=== PATIENT | male | born 1945 | race Caucasian/White ===

== ENCOUNTER 2017-06-24 08:29 | Inpatient (IN) | payer OTHER ==
[2017-06-24] MEDS ORDERED: LR 1,000 ML IV ONE (08:46)
[2017-06-24] MEDS ORDERED: LIDOCAINE 1% 2 ML INJ ID PRN (08:46)
[2017-06-24] MEDS ORDERED: THROMBIN (BOVINE) 5,000 UNIT VIAL TP ONE (08:57)
[2017-06-24] MEDS ORDERED: CALCIUM CHLORIDE 1 GM/10 ML INJ ONE (08:58)
[2017-06-24] MEDS ORDERED: ceFAZolin 1 GM/5 ML SYR ONE (08:58)
--- NOTE | 2017-06-24 09:13 | PDHPUP ---
History & Physical Update H&P update statement: This history and physical update is based on an assessment of the patient which was completed after admission or registration (within 24 hours), but prior to the surgery/procedure. H&P update: H&P reviewed & patient examined, no change in patient's condition since H&P completed
[2017-06-24] MEDS: FAMOTIDINE 20 MG TAB PO ONE ×2 (09:22→09:27)
[2017-06-24] MEDS ORDERED: MIDAZOLAM 2 MG/2 ML VIAL IVP ONE (09:57)
--- NOTE | 2017-06-24 09:57 | PDANEPAE ---
ANE History of Present Illness L TKA ANE Past Medical History - Cardiovascular History Hx Hypertension: No Hx Arrhythmias: No Hx Chest Pain: No Hx Coronary Artery / Peripheral Vascular Disease: No Hx CHF / Valvular Disease: No Hx Palpitations: No - Pulmonary History Hx COPD: No Hx Asthma/Reactive Airway Disease: No Hx Recent Upper Respiratory Infection: No Hx Oxygen in Use at Home: No Hx Sleep Apnea: No Sleep Apnea Screening Result - Last Documented: Negative - Neurologic History Hx Cerebrovascular Accident: No Hx Seizures: No Hx Dementia: No - Endocrine History Hx Diabetes: No Obesity: no - Renal History Hx Renal Disorders: Yes Renal History Comment: hx of kidney stones. hx of turp - Liver History Hx Hepatic Disorders: No - Neurological & Psychiatric Hx Hx Neurological and Psychiatric Disorders: No - Cancer History Hx Cancer: No - Congenital Disorder History Hx Congenital Disorders: No - GI History Hx Gastrointestinal Disorders: Yes Gastrointestinal History Comment: reflux - Other Health History Other Health History: none - Chronic Pain History Chronic Pain: Yes (left knee and right foot) - Surgical History Prior Surgeries: right foot/ toe joint surgery 2016. Right TKA with Sarah 20 yrs ago. hernia repair. kidney stone removal. TURP. appy. tonsillectomy ANE Review of Systems Review of Systems: - Exercise capacity METS (RN): 4 METS ANE Patient History - Allergies Allergies/Adverse Reactions: No Known Allergies Allergy (Verified 06/10/17 10:56) - Home Medications Home Medications: Ibuprofen [Motrin (*)] 200 mg PO DAILY PRN 06/03/17 [Last Taken 1 Week Ago ~10/29] Naproxen Sodium [Aleve 220 MG (*)] 220 mg PO BID PRN 06/03/17 [Last Taken 1 Week Ago ~06/17/17] Omeprazole [Prilosec 20 mg] 20 mg PO DAILY 06/03/17 [Last Taken 06/24/17 07:00] Tadalafil [Cialis] 5 mg PO Q2D 06/03/17 [Last Taken Unknown] - NPO status NPO Since - Liquids (Date): 06/23/17 NPO Since - Liquids (Time): 23:00 NPO Since - Solids (Date): 06/23/17 NPO Since - Solids (Time): 20:00 - Smoking Hx Smoking Status: Never smoked - Family Anes Hx Family Hx Anesthesia Complications: none ANE Labs/Vital Signs - Vital Signs Blood Pressure: 141/78 Heart Rate: 57 Respiratory Rate: 18 O2 Sat (%): 96 Height: 177.8 cm Weight: 81.647 kg ANE Physical Exam - Airway Neck exam: FROM Mallampati Score: Class 1 Mouth exam: normal dental/mouth exam - Pulmonary Pulmonary: clear to auscultation - Cardiovascular Cardiovascular: regular rate and rhythym - ASA Status ASA Status: II ANE Anesthesia Plan Anesthesia Plan: general endotracheal anesthesia, spinal Regional Anesthesia: adductor canal FNB
[2017-06-24] MEDS ORDERED: MIDAZOLAM 2 MG/2 ML VIAL ONE (09:58)
[2017-06-24] MEDS ORDERED: ROPIVACAINE 0.2% 80 MG, EPINEPHrine 0.2 MG, KETOROLAC TROMETHAMINE 30 MG in SYRINGE 0 ML IU ONE (10:00)
[2017-06-24] MEDS ORDERED: ceFAZolin 2 GM/SWFI 2 GM/20 ML SYR IVP ONE (10:00)
[2017-06-24] MEDS ORDERED: DEXAMETHASONE 4 MG/ML VIAL IVP ONE (10:00)
[2017-06-24] MEDS ORDERED: ACETAMINOPHEN 325 MG TAB PO ONE (10:00)
[2017-06-24] MEDS ORDERED: fentaNYL 100 MCG/2 ML INJ ONE ×3 (10:09→12:46)
[2017-06-24] MEDS ORDERED: PROPOFOL 200 MG/20 ML VIAL ONE (10:09)
[2017-06-24] MEDS ORDERED: ROCURONIUM 50 MG/5 ML VIAL ONE (10:10)
[2017-06-24] MEDS ORDERED: DEXAMETHASONE 4 MG/ML VIAL ONE (10:10)
[2017-06-24] MEDS ORDERED: PHENYLEPHRINE 10 MG/ML SDV ONE (10:30)
[2017-06-24] MEDS ORDERED: ONDANSETRON DISINTEGRATING 4 MG TAB PO PRN (11:06)
[2017-06-24] MEDS ORDERED: diphenhydrAMINE 25 MG CAP PO PRN (11:06)
[2017-06-24] MEDS ORDERED: BISACODYL 10 MG SUPP PR PRN (11:06)
[2017-06-24] MEDS ORDERED: MAGNESIUM HYDROXIDE 30 ML UDCUP PO PRN (11:06)
[2017-06-24] MEDS ORDERED: POLYETHYLENE GLYCOL 3350 17 GM PKT PO PRN (11:06)
[2017-06-24] MEDS ORDERED: PROMETHAZINE HCL 25 MG SUPPR PR PRN (11:06)
[2017-06-24] MEDS ORDERED: DIPHENOXYLATE/ATROPINE LOMOTIL 1 TAB PO PRN (11:06)
[2017-06-24] MEDS ORDERED: FAMOTIDINE 20 MG TAB PO PRN (11:06)
[2017-06-24] MEDS ORDERED: CYCLOBENZAPRINE 10 MG TAB PO PRN (11:06)
[2017-06-24] MEDS ORDERED: METOCLOPRAMIDE 10 MG/2 ML VIAL IVP PRN (11:06)
[2017-06-24] MEDS ORDERED: LACTULOSE 20 GM/30 ML UDCUP PO PRN (11:06)
[2017-06-24] MEDS ORDERED: PROMETHAZINE HCL 25 MG/ML INJ IVP PRN (11:06)
[2017-06-24] MEDS ORDERED: ONDANSETRON 4 MG/2 ML VIAL IVP PRN (11:06)
[2017-06-24] MEDS ORDERED: LR 1,000 ML IV SCH (11:30)
[2017-06-24] MEDS ORDERED: clonIDINE 1 MG/10 ML VIAL EP ONE (11:50)
[2017-06-24] MEDS ORDERED: ROPIVACAINE HCL 150 MG/30 ML INJ ONE (11:50)
[2017-06-24] MEDS ORDERED: ONDANSETRON 4 MG/2 ML VIAL ONE (11:54)
[2017-06-24] MEDS ORDERED: NEOSTIGMINE METHYLSULFATE 3 MG/3 ML SYR ONE (12:12)
[2017-06-24] MEDS ORDERED: GLYCOPYRROLATE 0.2 MG/1 ML VIAL ONE (12:12)
[2017-06-24] MEDS ORDERED: NALOXONE HCL 0.4 MG/ML INJ IVP PRN (12:21)
[2017-06-24] MEDS ORDERED: HYDROmorphONE/DILAUDID 1 MG/ML INJ ONE (12:46)
[2017-06-24] MEDS: fentaNYL 100 MCG/2 ML INJ IVP PRN ×2 (12:50→13:25)
[2017-06-24] MEDS: HYDROmorphONE/DILAUDID 1 MG/ML INJ IVP PRN ×2 (12:50→13:25)
--- NOTE | 2017-06-24 14:27 | CPEKG ---
Heart Rate: 50 RR Interval: 1200 P-R Interval: 204 QRSD Interval: 128 QT Interval: 488 QTC Interval: 445 P Refugio: 46 QRS Refugio: -47 T Wave Refugio: -8 EKG Severity - ABNORMAL ECG - EKG Impression: SINUS RHYTHM EKG Impression: RBBB AND LAFB EKG Impression: LEFT VENTRICULAR HYPERTROPHY Electronically Signed By: Alireza Villegas 26-Jun-2017 11:14:54
--- NOTE | 2017-06-24 16:00 | POSTANESTH ---
Post Anesthetic Evaluation Cardiovascular Status: Similar to Pre-Op Cond Respiratory Status: Similar to Pre-op Cond. Level of Consciousness/Mental Status: Can Participate in Eval Pain Control: Inadeq, Add Tx Required Nausea/Vomiting Control: Adequate, Prn Tx Ordered Complications Possibly Related to Anesthesia: None Noted
[2017-06-24] MEDS: ACETAMINOPHEN 325 MG TAB PO SCH ×2 (16:13→18:47)
[2017-06-24] MEDS: ceFAZolin 2 GM/DEXTROSE 100 ML IV SCH (18:03)
--- NOTE | 2017-06-24 18:27 | GOP ---
[f rep st] OPERATIVE REPORT DATE OF OPERATION: 06/24/2017 SURGEON: Alessandra Smith MD CHEST PAINTING LEADER: Omar Tom CFA ANESTHESIA: Spinal with general and adductor canal block. PREOPERATIVE DIAGNOSIS: Severe osteoarthritis, left knee. POSTOPERATIVE DIAGNOSIS: Severe osteoarthritis, left knee. PROCEDURE PERFORMED: Left total knee arthroplasty. FINDINGS: Preoperative x-rays of the patient's left knee demonstrated severe medial compartment arth rosis. The patient also had moderate patellofemoral arthrosis. At the time of surgery, these findin gs were confirmed. The patient had complete loss of the articular cartilage in the medial compartmen t and moderate loss in the patellofemoral joint. At the time of surgery, a cemented Bond [employer] Nephew Journey II total knee arthroplasty was performed. A size 6 left Oxinium-coated femoral component wa s implanted and a size 5 tibial base plate was utilized. An 11 mm thick cross-linked polyethylene in sert was used in the metal backing of the tibia. A 35 mm round patellar component was also cemented into place. Following implantation of the components, the knee was taken through range of motion and achieved full extension and 135 degrees of flexion on the table. The knee was stable to varus and v algus stressing both in extension and flexion. The flexion, extension gaps were symmetrical. ESTIMATED BLOOD LOSS: Less than 100 cc. DESCRIPTION OF PROCEDURE: The patient was taken to the operating room, placed in supine position on the operating table. Following placement of a spinal block and general inhalation anesthesia, the kn ee and leg were prepped and draped in the usual sterile manner. The patient received 2 g of IV Ancef . The leg was elevated and exsanguinated and the tourniquet inflated to 275 mmHg. The DeMayo leg ho lder was used throughout the procedure for positioning. A midline incision was made extending from j ust superior to the patella distally to the tibial tubercle. Incision was carried down through the s ubcutaneous tissue to the retinaculum of the knee. A medial parapatellar arthrotomy was then perform ed and the patella was everted laterally. The thickness of the patella was measured and then a 9 mm bone cut was taken from the posterior patella. A metal plate was placed on the cut surface to protec t the patella which was placed in the lateral gutter. Our attention was then turned to the distal femur. A distal femoral drill hole was made and then int ramedullary referencing was utilized for the distal femoral cut. The distal femoral cutting block wa s positioned and a +2 cut was taken from the distal femur due to a small preoperative flexion contrac ture. Next, the femur was sized and the patient was a size 6 in the anterior-posterior plane and a s ize 7 in the medial-lateral plane, so the size 6 component was chosen. The cutting block was placed on the distal femur and then pinned. The anterior, posterior, and chamfer cuts were made. The size 6 component was placed on the femur and then the notch was cleared with a reamer followed by the box osteotome. The femoral component was then removed and our attention was turned to the tibia. The me dial and lateral meniscus were excised. The tibia was retracted anteriorly and again intramedullary referencing was utilized for the tibial cut. A drill hole was placed in the proximal tibia and then the intramedullary guide was inserted. The tibial cutting block was positioned appropriately and pin shane. The tibial cut was made. The bone was then removed and the soft tissues were released around t he edges of the bone cut. The posterior cruciate ligament was released posteriorly taking care to pr otect all the structures in the back of the knee. The tibia was then sized. A size 5 tibial compone nt was chosen. The tibial component was then pinned into place and a trial reduction was performed w ith a 10 and 11 mm thick polyethylene. The best fit was noted with the 11 mm polyethylene. The flex ion and extension gaps were checked and were symmetrical. The keel punch was then used on the tibia. The patella was prepared for cementing with the drill. All the trial components were removed and t he bony surfaces were thoroughly irrigated and dried. The cement was mixed. The tibial component wa s cemented first, followed by the femoral component and the patellar component. The 11 mm thick poly ethylene was inserted and the knee was brought into extension. Pressure was held on the components w hile the cement hardened. Excess cement was removed from around the edges of the components. The wo und was thoroughly irrigated out. Prior to implantation of the components, the posterior capsule was injected with joint cocktail. The tourniquet was then deflated and hemostasis was obtained. The re tinaculum of the knee was closed using #2 FiberWire in a [id number] fashion. Subcutaneous tissu es were closed using 2-0 Vicryl. The skin was closed using ana. Sterile dressings were applied. The patient tolerated the procedure well. There were no complications. Estimated blood loss minim al. Final sponge and needle counts were correct. The patient was transported to the recovery room i n good condition. /[id number]/MODL
[2017-06-24] MEDS ORDERED: KETOROLAC 15 MG/1 ML SDV IVP PRN (21:06)
[2017-06-24] MEDS: SENNOSIDES/DOCUSATE SODIUM TAB PO SCH (21:18)
[2017-06-24 23:24] VITALS: TEMP 98.1
[2017-06-25] MEDS: ACETAMINOPHEN 325 MG TAB PO SCH ×3 (00:33→12:27)
[2017-06-25] MEDS: ceFAZolin 2 GM/DEXTROSE 100 ML IV SCH (00:33)
[2017-06-25 06:17] LABS: HEMATOCRIT 34.9 % (40.0-51.0); HEMOGLOBIN 12.3 g/dL (13.7-17.5)
[2017-06-25] MEDS ORDERED: KETOROLAC 30 MG/1 ML SDV IVP PRN (07:58)
[2017-06-25] MEDS: SENNOSIDES/DOCUSATE SODIUM TAB PO SCH (08:11)
[2017-06-25] MEDS ORDERED: ASPIRIN 325 MG TAB PO SCH (09:00)
[2017-06-25] MEDS ORDERED: ASPIRIN 81 MG CHEWABLE TAB PO SCH (09:00)
[2017-06-25] MEDS ORDERED: NON-FORMULARY NEW DRUG (Omeprazole [Prilosec 20 Mg] 20 MG) PO SCH (09:00)
[2017-06-25] MEDS ORDERED: PANTOPRAZOLE SODIUM 40 MG TAB PO SCH (09:00)
--- NOTE | 2017-06-25 09:50 | ASMTCMCOM ---
CM Note CM Note Notes: Patient is POD #1 L TKA and doing well. Anticipates discharge today. Spoke with patient and about discharge plans. They are staying with friends in [place] until 07/03 when he has a follow up appointment. He has outpatient PT scheduled in [place] for later in the month, but would like home care until he returns home. Apparently, Dr Smith's office recommended [facility]. I sent a referral and spoke to Maryjane. She will come see patient today. Current Case Management Discharge plan: to friends home with [facility] Date Signed: 06/25/2017 09:50 AM Electronically Signed By:Misa Bañuelos RN
[2017-06-25 11:34] VITALS: BP 110/60; PULSE 55; RESP 16; O2SAT 94
--- NOTE | 2017-06-25 11:39 | SOAPPROG ---
SOAP Progress Note Assessment/Plan: Assessment/Plan: 72y/o male s/p left TKA - stable and doing well - pain medications as ordered - did well with PT/OT, will need home care - active care system as directed - post-op xrays stable - dc home with home health care, return precautions discussed 06/25/17 11:37 Subjective: Pain well controlled. Eating, drinking, voiding Objective: Vital Signs Temp Pulse Resp BP Pulse Ox 36.7 C 55 L 16 110/60 94 06/25/17 11:32 06/25/17 11:32 06/25/17 11:32 06/25/17 11:32 06/25/17 11:32 Laboratory Results 06/25/17 04:58 06/24/17 06/25/17 06/26/17 05:59 05:59 05:59 Intake Total 1620 Output Total 250 450 Balance 1370 -450 NAD, well appearing, no distress EOMi, face symmetric MAEx4 left knee extension 5, flexion 75 incision CDI, no erythema or active drainage ICD10 Worksheet Patient Problems: Problems Problem Status Onset Arthritis of knee Acute - ICD10 Problem Qualifiers (1) Arthritis of knee
--- NOTE | 2017-06-25 11:43 | PDIAF ---
- Diagnosis Diagnosis: left knee arthritis Code Status: Full Code - Medication Management Discharge Medications: Medications to Continue on Transfer Omeprazole [Prilosec 20 mg] 20 mg PO DAILY 06/03/17 [Last Taken 06/24/17 07:00] Tadalafil [Cialis] 5 mg PO Q2D 06/03/17 [Last Taken Unknown] Acetaminophen [Tylenol 325mg (*)] 650 mg PO Q6HRS tab 06/25/17 [Last Taken Unknown] Aspirin [Aspirin 81mg (*)] 81 mg PO DAILY tab.chew 06/25/17 [Last Taken Unknown ] celeCOXIB [Celebrex (*)] 200 mg PO DAILY cap 06/25/17 [Last Taken Unknown] traMADol [Ultram 50 mg (*)] 50 - 100 mg PO Q6HRS PRN tab 06/25/17 [Last Taken Unknown] Discharge Medications: Refer to the Discharge Home Medication list for PRN reason. - Orders Services needed: Home Care, Physical Therapy, Occupational Therapy Home Care Face to Face: I certify that this patient was under my care and that I had the required [id number] encounter meeting the encounter requirements on the discharge day. My findings support the fact that the patient is homebound as defined in Home Care Face to Face Continued: CMS Chapter 7 Medicare Benefits Manual 30.1.1 , The condition of the patient is such that there exists a normal inability to leave home and consequently, leaving home would require a considerable and taxing effort. Diet Recommendation: no restrictions on diet Diet Texture: Regular Texture Diet Newton Stockings Discontinue Date: active care system as directed Wound Care Instructions: keep incision clean and dry Sutures/David Site: david will be removed at post-op appointment Activity/Weight Bearing Restrictions: weight bearing as tolerated Equipment: walker - Follow Up Care Current Providers and Referrals: Doctor Yamilka,On Staff, [Primary Care Provider] - Alessandra Smith MD [Medical Doctor] -
[2017-06-25] MEDS: traMADol 50 MG TAB PO PRN ×2 (14:33→16:10)
--- NOTE | 2017-06-25 16:36 | ASDISCHSUM ---
Discharge Information Plan Status:Home with Home Health Medically Cleared to Leave: Discharge Date:06/25/2017 04:32 PM CM D/C Disposition:Home Health Service ADT D/C Disposition:[id number] Projected Discharge Date:06/25/2017 11:00 AM Transportation at D/C:Family Discharge Delay Reason: Follow-Up Date:06/25/2017 11:00 AM Discharge Slot: Final Diagnosis: Placement Information Referral Type:*Home Health Care Services Referral ID:[id number] Provider Name:[facility] ([facility]) Address 1:[address] [address] Address 2: City:[place] Selection Factors: State:[place] Patient Contact Information Contact Name:LEANNE Relationship: Address:[facility] [address] City:[place] Alternate Phone: State/Zip Code:[place] [address] Email: Financial Information Financial Class:Medicare Advantage Plans Primary Plan Desc:[facility] Primary Plan Number:[id number] Secondary Plan Desc: Secondary Plan Number: Assessment Information [facility] CM Progress Note CM Note CM Note Notes: Patient is POD #1 L TKA and doing well. Anticipates discharge today. Spoke with patient and about discharge plans. They are staying with friends in [place] until 07/03 when he has a follow up appointment. He has outpatient PT scheduled in [place] for later in the month, but would like home care until he returns home. Apparently, Dr Smith's office recommended [facility]. I sent a referral and spoke to Maryjane. She will come see patient today. Current Case Management Discharge plan: to friends home with [facility] Date Signed: 06/25/2017 09:50 AM Electronically Signed By:Misa Bañuelos RN Intervention Information
== END 2017-06-25 16:32 | disposition home health service (06) | DRG 470 ==
LOC: F3N 08:29
PROVIDERS: ADMIT Orthopaedic Surgery; ATTEND Orthopaedic Surgery
PROC: 0SRD0J9 Replacement of Left Knee Joint with Synthetic Substitute, Cemented, Open Approach (ICD-10-PCS; principal; 2017-06-24 10:45)
DX: M17.12 Unilateral primary osteoarthritis, left knee (principal)
CPT/HCPCS: 97116-GP; 97161-GP; 97165-GO; 97535-GO; C1713; G8978-GP-CI; G8979-GP-CI; G8980-GP-CI; G8987-GO-CI; G8988-GO-CI; G8989-GO-CI; J0171; J0690; J0735; J1100; J1170; J1885; J2250; J2370; J2405; J2550; J2704; J2710; J2795; J3010